=== PATIENT | female | born 1990 | race Caucasian/White ===

== ENCOUNTER 2025-04-01 23:21 | Emergency (ER) | payer BC, SELFPAY ==
[2025-04-01 23:24] VITALS: BP 151/77; PULSE 73; RESP 18; TEMP 37.1; O2SAT 97; BMI 29.1
[2025-04-01 23:56] LABS: MANUAL DIFF FLAG NO
[2025-04-01 23:58] LABS: Hematocrit 37.7 % (37.0-47.0); Hemoglobin 12.6 g/dl (12.0-16.0); Imm Gran Abs Auto 0.02 X10*3/uL (0.00-0.03); Imm Gran Pct Auto 0.2 % (0.0-0.4); Lymphocytes Absolute Auto 4.2 X10*3/uL (1.2-4.9); Mean Corpuscular HGB Conc 33.4 g/dl (31.0-35.0); Mean Corpuscular Hemoglobin 26.9 pg (27.0-33.0); Mean Corpuscular Volume 80.4 fL (80.0-98.0); NRBC Abs Auto 0.000 X10*3/uL (0.0-0.012); NRBC Pct Auto 0.0 /100WBC (0.0-0.2); Platelet Count 289 X10*3/uL (160-400); Red Blood Count 4.69 X10*6/uL (4.20-5.50); White Blood Count 10.3 X10*3/uL (4.8-10.8)
[2025-04-02 00:18] LABS: Alanine Aminotransferase 11 U/L (0-31); Albumin Level 4.2 g/dL (3.5-5.0); Alkaline Phosphatase 92 U/L (39-117); Anion Gap 14 (12-20); Aspartate Amino Transferase 15 U/L (5-31); Blood Urea Nitrogen 12 mg/dL (9-16); Calcium 9.1 mg/dL (8.4-10.2); Carbon Dioxide 25 mmol/L (22-29); Chloride 106 mmol/L (96-108); Creatinine Clr Calc Pharmacy 109.4; Estimated Glomerular Filt Rate > 60; Potassium 3.7 mmol/L (3.3-5.1); Sodium 141 mmol/L (135-145); Total Protein 7.3 g/dL (6.5-8.0)
--- OUTSIDE RECORDS SUMMARY | 2025-04-02 01:03 | XMS_ITS | Clinical Summary ---
Author Organization [facility] Address [address] [employer] [address] [address] Phone Care Team Providers Care Tool Technician Name Role Phone Le Carlson MD Primary Care Provider [phone] Allergies Active Allergy Reactions Criticality Noted Date Comments Cefprozil 08/11/2019 H Papillomavirus Vac,Qval (Pf) 08/11 [place] Dye 08/11/2019 Red Dye 08/11/2019 Sulfites 08/11/2019 Medications multivitamin-Ca -iron-minerals 27-0.4 mg Tab Take by mouth daily. Active etonogestreL-et hinyl estradioL (NUVARING) 0.12-0.015 mg/24 hr vaginal ring INSERT 1 RING VAGINALLY EVER 28 DAYS DIRECTED 2 Active sertraline (ZOLOFT) 50 MG tablet Take 50 mg by mouth daily. 2 Active Active Problems Problem Noted Date Diagnosed Date Posttraumatic stress disorder 02/27/2022 Fracture of eighth thoracic vertebra 02/27/2022 Panic disorder without agora phobia with moderate panic attacks 02/27/2022 Pathological fracture of vertebra 02/27/2022 Overview (02/27/2022): during martial arts Immunizations No known immunizations Social History Tobacco Use Types Packs/Day Years Used Date Smoking Tobacco: Never Smokeless Tobacco: Never Tobacco Cessation:Counseling Given: No Alcohol Use Standard Drinks/Week Comments Not Currently 0 (1 standard drink = 0.6 oz pur e alcohol) once per 6 months Education Answer Date Recorded Are you interested in more education? Not on junior e 12/03/2022 Are you concerned about learning? Not on file 12/03/2022 No 12/03/2022 No 12/03/2022 Digital Access Answer Date Recorded No 12/31/2022 No 12/31/2022 No 12/31/2022 Reliable internet access at home? Not on file 12/31/2022 Device with a working camera? Not on file Comments Unknown Sex and Gender Information Value Date Recorded Sex Assigned at Female 08/11/2019 8:49 AM EST Legal Sex Female 9:05 PM EDT Gender Identity Female 08/11/2019 8:49 AM EST Sexual Orientation Not on file Last Filed Vital Signs Vital Sign Reading Time Taken Comments Blood Pressure 117/77 02/27/2022 3:16 PM EDT Pulse 84 02/27/2022 3:16 PM EDT Temperature 36.9 C (98.5 F) 02/27/2022 3:16 PM EDT Respiratory Rate 20 02/27/2022 3:16 PM EDT Oxygen Saturation 98% 02/27/2022 3:16 PM EDT Inhaled Oxygen Concentration - - Weight 68 kg (150 lb) 02/27/2022 3:16 PM EDT Height 170.2 cm (5' 7 ) 02/27/2022 3:16 PM EDT Body Mass Index 23.49 02/27/2022 3:16 PM EDT Plan of Treatment Health Maintenance Due Date Last Done Comments DEPRESSION SCREENING 2001 HEPATITIS C SCREENING 2007 HIV ONE-TIME SCREENING (18-6 5 YEARS) 2007 PAP SMEAR 2010 COVID-19 VACCINE (4 2023-2 5 season) 2024 07/14/2021, 12/28/2020, 11/28/2020 Adult Td,Tdap Booster 01/15/2025 01/15/2015 , 08/17/2014 MENINGOCOCCAL VACCINES (ACWY) Completed 07/03/2007 SMOKING STATUS SCREENING (On ce After 26 Yrs) Completed 02/27/2022 HEPATITIS A VACCINES Aged Out No long er eligible based on patient's age to complete this topic HIB VACCINES Aged Out No longer eligi ble based on patient's age to complete this topic MENINGOCOCCAL VACCINES (B) Aged Out N o longer eligible based on patient's age to complete this topic PNEUMOCOCCAL VACCINES (0-49 years) Aged Out No longer eligible b ased on patient's age to complete this topic Medical Devices Not on file [place] [address] [place] [address] PPO INDEM BLUE [facility] PPO INDEM [facility] PPO INDEM [facility] PPO INDEM [facility] PPO INDEM BLUE [facility] PPO INDEM Care Teams Tool Technician Relationship Specialty Start Date End Date Le Carlson MD [address] [place] [phone] [email or web address] PCP - General Family Medicine 08/11/19 Additional Source Comments The information contained in this document represents components of the legal health record. It is not the complete legal health record.[facility]
--- OUTSIDE RECORDS SUMMARY | 2025-04-02 01:03 | XMS_ITS ---
Author Name [facility] Organization Unknown Care Team Organization Name Specialty Phone Email Start Date End Da te [employer] 05/23/2022 0 03/26/2024
--- NOTE | 2025-04-02 01:15 | ED.GENADULT ---
HPI - General Adult General Chief complaint: General Medical Stated complaint: Breast Numbness Time Seen by Provider: 04/02/25 00:36 Source: patient Mode of arrival: ambulatory Limitations: no limitations History of Present Illness ED Provider: Dr. Chrystal Felix HPI narrative: 34-year-old female with no significant past medical history presenting with left breast pain that began earlier today. Admits that she had some itching of the breast 2 days ago and then developed a stabbing pain just under the area of itching that eventually evolved into numbness overlying the skin. Admits when she touches the skin she can feel the pressure deeper in her breast but can not feel the skin surface. Took off her bra but did not feel it helped. No injury to the area. No rashes. No fever, nausea, vomiting, difficulty breathing, abdominal pain, known sick contacts or travel. She did have chickenpox as a child. Related Data Previous Rx's ?Medication ?Instructions ?Recorded gabapentin 250 mg/5 mL oral 300 mg (6 mL) PO TID #473 mL 04/02/25 solution Allergies Allergy/AdvReac Type Severity Reaction Status Date / Time cefprozil Allergy Hives Verified 04/01/25 23:31 human papillomavirus Allergy Hives Verified 04/01/25 23:31 vaccine, quadr (From Gardasil (PF)) red dye Allergy Agitated Verified 04/01/25 23:31 sulfite Allergy Difficulty Verified 04/01/25 23:31 Breathing Review of Systems Review of Systems: As per HPI, full review of systems performed and negative but for the above mentioned pertinent positives and negatives. [facility] Social History Social History Alcohol intake: current Alcohol intake frequency: holidays/special occasions only Smoked in Last 30 Days: No Use of substances other than those prescribed or required for medical reasons: No Advance Directives: No Advance Directives Information Provided: Yes Patient : No Physical Exam ED Exam Exam: GENERAL: Well-Appearing, conversant, no acute distress. SKIN: Normal skin color for ethnicity, warm, dry, no rashes noted. HEENT: Normocephalic, atraumatic, no stridor, posterior oropharynx nonerythematous, dentition intact, EOMI. NECK: Soft, supple, full ROM, midline structures nontender, no step-offs, no deformities, no lymphadenopathy. CHEST: Heart regular rate and rhythm, no murmurs, symmetric chest rise and fall, no skin changes overlying the left breast, no dimpling of the skin, no palpable mass, no changes or involution of the areola, no significant difference from the right breast. PULMONARY: Clear to auscultation bilaterally, no labored breathing, no wheezes/rhales/rhonchi. ABDOMINAL: Soft, nondistended, nontender, positive bowel sounds in all quadrants. : Deferred. MUSCULOSKELETAL: Normal tone, full range of motion, no deformities, no peripheral edema. NEURO: Alert and oriented x3, CN II through XII intact, equal strength and sensation bilateral upper and lower extremities, no focal neurologic deficits. PSYCHIATRIC: Normal affect, fluid speech, good eye contact and appropriate demeanor. Vital Signs: Vital Signs - 24 hr 04/01/25 23:24 04/02/25 02:56 04/02/25 03:00 Temperature 98.7 F 98.0 F 98.0 F Pulse Rate 73 73 73 Respiratory Rate 18 18 18 Blood Pressure 151/77 H 116/77 116/77 Pulse Oximetry 97 97 97 Oxygen Delivery Method Room Air Room Air Room Air BMI result Body Mass Index 29.1 Medications Administered Discontinued Medications Generic Name Dose Route Start Last Admin Trade Name Freq PRN Reason Stop Dose Admin Ibuprofen 600 mg 04/02/25 02:18 04/02/25 02:54 Ibuprofen 600 Mg Tablet PO 04/02/25 02:19 600 mg ONCE ONE Administration Medical Decision Making Medical Decision Making [facility] Narrative: 34-year-old female presenting with a left breast pain ongoing for the last several hours. She has some paresthesias over the skin now. Differential diagnosis includes breast trauma from wearing a bra/constriction, nerve pain, shingles without skin eruption, among others. She has no evidence of infectious process today. No rash. I did discuss with her the possibility of the shingles rash that could erupt from the skin. Encouraged her to use gabapentin for pain. I did provide her with a prescription for gabapentin liquid formula as she is allergic to red dye. She will be discharged home to follow up with primary care. Differential Diagnosis Differential Diagnoses: The differential diagnosis associated with the presentation includes (As above) Admission/Observation Consideration of admission/observation: Escalation of care including admission/observation considered Lab Data [facility] Lab Attestation statement: I reviewed the patient's lab results. 04/01/25 23:52 04/01/25 23:52 Labs: Lab Results 04/01/25 Range/Units 23:52 WBC 10.3 (4.8-10.8) X10*3/uL RBC 4.69 (4.20-5.50) X10*6/uL Hgb 12.6 (12.0-16.0) g/dl Hct 37.7 (37.0-47.0) % MCV 80.4 (80.0-98.0) fL MCH 26.9 L (27.0-33.0) pg MCHC 33.4 (31.0-35.0) g/dl RDW 13.9 (11.0-16.0) % Plt Count 289 (160-400) X10*3/uL MPV 9.7 (9.4-12.3) fL Immature Gran % (Auto) 0.2 (0.0-0.4) % Neut % (Auto) 51.6 (45-73) % Lymph % (Auto) 41.3 H (20-40) % [place] % (Auto) 5.3 (2-11) % Eos % (Auto) 1.2 (0-4) % Baso % (Auto) 0.4 (0-2) % Lymph # (Auto) 4.2 (1.2-4.9) X10*3/uL [place] # (Auto) 0.5 (0.1-1.2) X10*3/uL Eos # (Auto) 0.1 (0.0-0.4) X10*3/uL Baso # (Auto) 0.0 (0.0-0.2) X10*3/uL Abs Immat Gran (auto) 0.02 (0.00-0.03) X10*3/uL Absolute Neuts (auto) 5.3 (2.0-8.3) x10*3/uL Absolute Nucleated RBC 0.000 (0.0-0.012) X10*3/uL Nucleated RBC % (auto) 0.0 (0.0-0.2) /100WBC Sodium 141 (135-145) mmol/L Potassium 3.7 (3.3-5.1) mmol/L Chloride 106 (96-108) mmol/L Carbon Dioxide 25 (22-29) mmol/L Anion Gap 14 (12-20) BUN 12 (9-16) mg/dL Creatinine 0.80 (0.5-1.4) mg/dL Estim Creat Clear Calc 109.4 Estimated GFR > 60 Random Glucose 113 (60-115) mg/dL Calcium 9.1 (8.4-10.2) mg/dL Total Bilirubin 0.1 (0.0-1.0) mg/dL AST 15 (5-31) U/L ALT 11 (0-31) U/L Alkaline Phosphatase 92 (39-117) U/L Total Protein 7.3 (6.5-8.0) g/dL Albumin 4.2 (3.5-5.0) g/dL Independent Historian Clinical information obtained from an independent historian. History obtained from or confirmed by: Friend Prescription Management I considered prescription management with: Pain Medication Scores Heart Score History: -0- slightly suspicious ECG: -0- normal Age: -0- < or = 45 Risk factory: -0- no risk factors known Troponin: -0- < or = normal limit Score: 0 Risk: 1.7% Discharge Plan Discharge Clinical Impression: Complaint of paresthesia, Pain of left breast Patient Disposition: Home, Self-Care Instructions: Paresthesia (ED) Additional Instructions: The pain in your left breast is likely secondary to a pinched nerve. Alternatively, it could be early shingles. Look for a rash that may erupt in the skin, that looks like blisters associated with chickenpox. This is a shingles rash. Treatment of this is supportive care. Avoid being around people if you have a shingles rash. Return to the emergency department with any new or worsening symptoms including: Worsening pain despite medications, fevers greater than 100?, redness or pus drainage from your breast, any new symptom that concerns you. Call 911 with any medical emergency. Prescriptions: New gabapentin 250 mg/5 mL solution 300 mg PO TID Qty: 473 0RF Interventions: ED Discharge Assessment Last Done: 04/02/25 03:00 Discharge Date/Time: 04/02/25 03:01 Print Language: Maltese
[2025-04-02 02:56] VITALS: BP 116/77; PULSE 73; RESP 18; TEMP 36.7; O2SAT 97
[2025-04-02 03:00] VITALS: BP 116/77; PULSE 73; RESP 18; TEMP 36.7; O2SAT 97
== END 2025-04-02 03:01 | disposition home or self-care (01) ==
PROVIDERS: Emergency Medicine; Emergency Provider Emergency Medicine
DX: R20.0 Anesthesia of skin (principal); N64.4 Mastodynia
CPT/HCPCS: 36415; 80053; 85025; 99284